=== PATIENT | female | born 1955 | race Caucasian/White ===

== ENCOUNTER 2020-05-19 15:49 | Emergency (ER) | payer BC ==
[~2020-05-19] VITALS: Ht 154.9 cm; Wt 74.4 kg
--- NOTE | 2020-05-19 17:34 | NUR ---
Patient discharged to home in stable condition. Written and verbal after care instructions given. Patient verbalizes understanding of instructions. Stressed follow up or return to ER for worsening s/s.
[2020-05-19 17:35] VITALS: BP 141/88
== END 2020-05-19 17:36 | disposition home or self-care (01) ==
LOC: ER 15:49
DX: S93.401A Sprain of unspecified ligament of right ankle, initial encounter (principal); W18.41XA Slipping, tripping and stumbling without falling due to stepping on object, initial encounter; Y92.019 Unspecified place in single-family (private) house as the place of occurrence of the external cause; M19.071 Primary osteoarthritis, right ankle and foot; Z88.0 Allergy status to penicillin; M77.31 Calcaneal spur, right foot; Z98.890 Other specified postprocedural states
CPT/HCPCS: 73610; 73630; A4663